=== PATIENT | female | born 1955 | race Caucasian/White ===

== ENCOUNTER → 2017-05-25 | Outpatient (CLI) | payer BC | END | disposition home or self-care (01) | LOC: LABWHC1 09:06 | PROVIDERS: ATTEND Obstetrics & Gynecology | DX: R14.0 Abdominal distension (gaseous) (principal); R10.2 Pelvic and perineal pain; Z80.8 Family history of malignant neoplasm of other organs or systems | CPT/HCPCS: 36415; 86304 ==

== ENCOUNTER → 2018-04-01 | Outpatient (CLI) | payer BC ==
[2018-04-01 11:54] LABS: Basophils % (A) 1 %; Eosinophils # (A) 0.1 k/uL (0-0.7); Eosinophils % (A) 1 %; HCT 39.9 % (34.0-46.0); Lymphocytes # (A) 1.4 k/uL (1.0-4.8); Lymphocytes % (A) 26 %; MCH 30.7 pg (25.0-35.0); MCHC 32.6 g/dL (31.0-37.0); MCV 94.2 fL (80.0-100.0); Monocytes # (A) 0.3 k/uL (0-1.0); Monocytes % (A) 6 %; Neutrophils # (A) 3.5 k/uL (1.3-7.7); Neutrophils % (A) 64 %; Platelet Count 335 k/uL (150-450); RBC 4.23 m/uL (3.80-5.40); RDW 13.4 % (11.5-15.5); WBC 5.5 k/uL (3.8-10.6)
[2018-04-01 12:06] LABS: ALT 34 U/L (9-52); AST 35 U/L (14-36); Blood Urea Nitrogen 15 mg/dL (7-17); C Reactive Protein <5.0 mg/L (<10.0); Uric Acid 4.9 mg/dL (3.7-7.4)
[2018-04-01 13:01] LABS: Erythrocyte Sedimentation Rate 8 mm/hr (0-20)
[2018-04-01 17:16] LABS: Cyclic Citrullinated Pep IgG NEGATIVE (NEGATIVE)
[2018-04-01 17:37] LABS: Rheumatoid Factor 5 IU/mL (0-15)
== END | disposition home or self-care (01) ==
LOC: LABWHC1 10:59
PROVIDERS: ATTEND Internal Medicine Rheumatology
DX: M25.50 Pain in unspecified joint (principal); M06.4 Inflammatory polyarthropathy; M10.9 Gout, unspecified
CPT/HCPCS: 36415; 82565; 82728; 84443; 84450; 84460; 84520; 84550; 85025; 85652; 86140; 86200; 86431

== ENCOUNTER 2018-05-24 07:23 | Emergency (ER) | payer BC ==
[2018-05-24 07:33] VITALS: RESP 18
--- NOTE | 2018-05-24 08:21 | ED ---
Skin/Abscess/FB HPI - General Chief complaint: Skin/Abscess/Foreign Body Stated complaint: Infection on Thumb Time Seen by Provider: 05/24/18 08:03 Source: patient, RN notes reviewed Mode of arrival: ambulatory Limitations: no limitations - History of Present Illness Initial comments: This is a 62-year-old female presents emergency Department chief complaint of left hand infection. Patient states she had a blister approximately one week ago and recently opened up a couple days ago and developed redness and pain. Patient saw PCP yesterday was given an injection of antibiotics and discharged on Levaquin. She states she's taken one dose and states that the swelling and pain worsened overnight. Patient states that her PCP 100, hospital yesterday to receive IV antibiotics. She denies any fever, chills, pain and radiates to her forearm or any noticed streaking redness. Patient has no history of MRSA VRE. - Related Data Home Medications Medication Instructions Recorded Confirmed Atorvastatin Calcium [Lipitor] 10 mg PO HS 03/29/14 05/24/18 Levothyroxine Sodium [Synthroid] 100 mcg PO DAILY 03/29/14 05/24/18 Ibuprofen [Motrin] 800 mg PO Q8HR PRN 10/27/15 05/24/18 Levofloxacin [Levaquin] 750 mg PO DAILY 05/24/18 05/24/18 Allergies Allergy/AdvReac Type Severity Reaction Status Date / Time erythromycin base Allergy Unknown Rash/Hives Verified 05/24/18 07:39 [Erythromycin Base] oxycodone HCl [From Percocet] Allergy Unknown Rash/Hives Verified 05/24/18 07:39 amoxicillin Allergy Rash/Hives Verified 05/24/18 07:39 codeine Allergy Nausea Verified 05/24/18 07:39 Review of Systems ROS Statement: Those systems with pertinent positive or pertinent negative responses have been documented in the HPI. ROS Other: All systems not noted in ROS Statement are negative. Past Medical History Past Medical History: Hyperlipidemia, Thyroid Disorder History of Any Multi-Drug Resistant Organisms: None Reported Past Surgical History: Orthopedic Surgery, Tubal Ligation Additional Past Surgical History / Comment(s): left foot surgery, d&c Past Psychological History: No Psychological Hx Reported Smoking Status: Former smoker Past Alcohol Use History: Daily Past Drug Use History: None Reported General Exam Limitations: no limitations General appearance: alert, in no apparent distress Head exam: Present: atraumatic, normocephalic, normal inspection Respiratory exam: Present: normal lung sounds bilaterally. Absent: respiratory distress, wheezes, rales, rhonchi, stridor Cardiovascular Exam: Present: regular rate, normal rhythm, normal heart sounds. Absent: systolic murmur, diastolic murmur, rubs, gallop, clicks Extremities exam: Present: other (Left hand between the first and second digit there is a 1 cm sore that is mildly fluctuant and surrounding erythema. There is noted swelling on the dorsum of the hand that extends towards the fifth digit ) Skin exam: Present: warm, dry Course Vital Signs 05/24/18 07:30 Temperature 98.2 F Pulse Rate 80 Respiratory 18 Rate Blood Pressure 158/82 O2 Sat by Pulse 99 Oximetry Procedures - Incision & Drainage Consent Obtained: verbal consent Indication: Abscess Site: hand (Left) Size (cm): 1 I&D Cleaning Method: Chloroprep Needle Aspiration Performed?: Yes Irrigation Performed?: No I&D Drainage Obtained: Pus, Blood Culture Obtained?: No Patient Tolerated Procedure: well, no complications Medical Decision Making - Medical Decision Making 62-year-old female presented for infected left hand. Patient has small abscess from a blister. Patient did receive an injection and Imitrex Estrace started on Levaquin. Patient's white count is 3 at this time. She did receive Ancef in the emergency department and she'll continue her oral antiemetics at home. Return parameters were discussed. - Lab Data Result diagrams: 05/24/18 08:21 05/24/18 08:21 Lab Results 05/24/18 05/24/18 Range/Units 08:21 08:21 WBC 3.0 L (3.8-10.6) k/uL RBC 4.31 (3.80-5.40) m/uL Hgb 13.4 (11.4-16.0) gm/dL Hct 40.8 (34.0-46.0) % MCV 94.7 (80.0-100.0) fL MCH 31.0 (25.0-35.0) pg MCHC 32.7 (31.0-37.0) g/dL RDW 14.0 (11.5-15.5) % Plt Count 250 (150-450) k/uL Neutrophils % (Manual) 2 % Lymphocytes % (Manual) 68 % Monocytes % (Manual) 27 % Eosinophils % (Manual) 3 % Neutrophils # (Manual) 0.06 L (1.3-7.7) k/uL Lymphocytes # (Manual) 2.04 (1.0-4.8) k/uL Monocytes # (Manual) 0.81 (0-1.0) k/uL Eosinophils # (Manual) 0.09 (0-0.7) k/uL Nucleated RBCs 0 (0-0) /100 WBC Manual Slide Review Performed Poikilocytosis (manual Present Sodium 141 (137-145) mmol/L Potassium 4.0 (3.5-5.1) mmol/L Chloride 104 (98-107) mmol/L Carbon Dioxide 26 (22-30) mmol/L Anion Gap 11 mmol/L BUN 12 (7-17) mg/dL Creatinine 0.78 (0.52-1.04) mg/dL Est GFR (CKD-EPI)AfAm >90 (>60 ml/min/1.73 sqM) Est GFR (CKD-EPI)NonAf 82 (>60 ml/min/1.73 sqM) Glucose 84 (74-99) mg/dL Calcium 9.4 (8.4-10.2) mg/dL Disposition Clinical Impression: Cellulitis of left hand, Infected wound Disposition: HOME SELF-CARE Condition: Stable Instructions: Cellulitis (ED) Additional Instructions: Continue antibiotics as directed. Please return to the Emergency Department if symptoms worsen or any other concerns. Is patient prescribed a controlled substance at d/c from ED?: No Referrals: Yaya Bueno MD [Primary Care Provider] - 1-2 days Time of Disposition: 08:58
[2018-05-24] MEDS ORDERED: ceFAZolin IN SWFI 2 GM/20 ML SYRINGE IVP STA (08:22)
[2018-05-24 08:31] LABS: HCT 40.8 % (34.0-46.0); HGB 13.4 gm/dL (11.4-16.0); MCHC 32.7 g/dL (31.0-37.0); MCV 94.7 fL (80.0-100.0); Mean Platelet Volume 7.5; Platelet Count 250 k/uL (150-450); RBC 4.31 m/uL (3.80-5.40)
[2018-05-24 08:41] LABS: Anion Gap 11 mmol/L; Blood Urea Nitrogen 12 mg/dL (7-17); Calcium 9.4 mg/dL (8.4-10.2); Carbon Dioxide 26 mmol/L (22-30); Chloride 104 mmol/L (98-107); Glucose 84 mg/dL (74-99); Sodium 141 mmol/L (137-145)
[2018-05-24 08:50] LABS: Eosinophils # (M) 0.09 k/uL (0-0.7); Lymphocytes # (M) 2.04 k/uL (1.0-4.8); Monocytes # (M) 0.81 k/uL (0-1.0); Neutrophils # (M) 0.06 k/uL (1.3-7.7); Neutrophils % (M) 2 %; Nucleated Red Blood Cells 0 /100 WBC (0-0); Total Cells Counted 100
[2018-05-24 08:52] LABS: Poikilocytosis (M) Present
--- NOTE | 2018-05-24 08:52 | XR ---
Left hand HISTORY: Infected blister on left thumb 3 views of the left hand Arthropathy changes are present. Small ossific densities at the interphalangeal joint of the first di git are well-corticated and felt likely to be chronic. Soft tissue swelling suspected. Alignment and bone mineralization are maintained. No periostitis to suggest osteomyelitis. IMPRESSION: Correlate to exclude acute trauma at first digit. Findings felt likely to be chronic as d escribed. Osteoarthritic changes.
[2018-05-24] MEDS ORDERED: BACITRACIN 500 UNIT/GM OINT 28.4 GM TUBE TOPICAL ONE (08:54)
[2018-05-24] MEDS ORDERED: BACITRACIN OINT 1 EACH PACKET TOPICAL ONE (09:15)
[2018-05-24 09:37] VITALS: BP 149/83; PULSE 88; TEMP 98.3
== END 2018-05-24 09:37 | disposition home or self-care (01) ==
LOC: EC 07:23
DX: L03.114 Cellulitis of left upper limb (principal); E78.5 Hyperlipidemia, unspecified; E07.9 Disorder of thyroid, unspecified; Z87.891 Personal history of nicotine dependence; Z79.899 Other long term (current) drug therapy; Z88.1 Allergy status to other antibiotic agents; Z88.5 Allergy status to narcotic agent; Z88.0 Allergy status to penicillin
CPT/HCPCS: 36415; 80048; 85025; 87040; 73130; 99283; 10060; 96374; J0690

== ENCOUNTER → 2018-08-28 | Outpatient (CLI) | payer BC ==
--- NOTE | 2018-08-29 09:02 | MM ---
Reason for exam: screening (asymptomatic). Last mammogram was performed 1 year and 10 months ago. History: Patient is postmenopausal. Family history of breast cancer in maternal aunt at age 67 and breast cancer in paternal grandmother at age 85. Physical Findings: A clinical breast exam by your physician is recommended on an annual basis and results should be correlated with mammographic findings. MG 3D Screening Mammo W/Cad Bilateral CC and MLO view(s) were taken. Prior study comparison: November 02, 2016, bilateral MG screening mammo w CAD. October 20, 2015, bilateral MG screening mammo w CAD. The breast tissue is heterogeneously dense. This may lower the sensitivity of mammography. No suspicious abnormality. No significant changes when compared with prior studies. ASSESSMENT: Negative, BI-RAD 1 RECOMMENDATION: Routine screening mammogram of both breasts in 1 year.
== END ==
LOC: RADMAMWWP 08:08
PROVIDERS: ATTEND Obstetrics & Gynecology
DX: Z12.31 Encounter for screening mammogram for malignant neoplasm of breast (principal)
CPT/HCPCS: 77063; 77067

== ENCOUNTER → 2018-10-08 | Outpatient (CLI) | payer BC ==
[2018-10-08 07:45] LABS: Basophils % (A) 1 %; Eosinophils # (A) 0.2 k/uL (0-0.7); Eosinophils % (A) 4 %; HCT 39.6 % (34.0-46.0); HGB 12.8 gm/dL (11.4-16.0); Lymphocytes # (A) 1.6 k/uL (1.0-4.8); Lymphocytes % (A) 39 %; MCH 31.2 pg (25.0-35.0); MCHC 32.3 g/dL (31.0-37.0); MCV 96.5 fL (80.0-100.0); Mean Platelet Volume 7.1; Monocytes # (A) 0.2 k/uL (0-1.0); Monocytes % (A) 4 %; Neutrophils % (A) 49 %; Platelet Count 346 k/uL (150-450); RDW 13.2 % (11.5-15.5); WBC 4.1 k/uL (3.8-10.6)
[2018-10-08 16:39] LABS: Albumin 4.4 g/dL (3.80-4.90); Albumin/Globulin Ratio 2.2 (1.20-2.10); Anion Gap 10.3 mmol/L (4.00-12.00); Calcium 9.2 mg/dL (8.7-10.3); Carbon Dioxide 23.7 mmol/L (21.6-31.8); Hemoglobin A1C 5.6 % (4.0-6.0); LDL Cholesterol,Calculated 96.4 mg/dL (0.0-131.0); Potassium 4.6 mmol/L (3.5-5.5); Total Bilirubin 0.5 mg/dL (0.3-1.2); Total Protein 6.4 g/dL (6.2-8.2); VLDL Calculation 17.6 mg/dL (5.00-40.00)
== END ==
LOC: LABWHC1 07:12
PROVIDERS: ATTEND Internal Medicine Cardiovascular Disease
DX: E03.9 Hypothyroidism, unspecified (principal); E66.3 Overweight; E78.2 Mixed hyperlipidemia; F41.1 Generalized anxiety disorder; R68.84 Jaw pain; R07.9 Chest pain, unspecified; R94.31 Abnormal electrocardiogram [ECG] [EKG]; Z68.25 Body mass index [BMI] 25.0-25.9, adult
CPT/HCPCS: 36415; 80053; 80061; 82306; 82550; 83036; 84443; 85025

== ENCOUNTER 2019-07-30 10:06 | Day surgery (SDC) | payer BC ==
[2019-07-28 15:53] VITALS: BMI 25.8
[~2019-07-30 10:06] MED LIST: LACTATED RINGERS 1,000 ML IV SCH; LIDOCAINE 1% 20 ML VIAL (10MG/ML) FOR IV START INTRADERMA PRN
[2019-07-30 10:30] VITALS: TEMP 98.1
[2019-07-30] MEDS ORDERED: PROPOFOL 10 MG/ML 20 ML VIAL IV ONE (10:55)
[2019-07-30] MEDS ORDERED: LIDOCAINE 1% INJ 10MG/ML (20 ML MDV) ONE (10:55)
[2019-07-30] MEDS ORDERED: GLYCOPYRROLATE 0.2 MG/ML 2 ML VIAL ONE (10:55)
--- NOTE | 2019-07-30 11:03 | P.PCN ---
Date of Procedure: 07/30/19 Procedure(s) Performed: BRIEF HISTORY: Patient is a 63-year-old, pleasant, at female, scheduled for an upper endoscopy as a part of evaluation of chronic intermittent diarrhea. Recently was noted to have positive celiac serology and hence she is scheduled for an upper endoscopy to evaluate this. PROCEDURE PERFORMED: Esophagogastroduodenoscopy with biopsy. PREOPERATIVE DIAGNOSIS: Intermittent diarrhea/positive celiac serology. IV sedation per anesthesia. PROCEDURE: After informed consent was obtained, the patient was brought into the endoscopy unit. IV sedation was administered by Anesthesia under continuous monitoring. Initially the Olympus GIF-140 video endoscope was inserted into the mouth. Esophagus intubated without any difficulty. It was gradually advanced into the stomach and duodenum and carefully examined. The bulb and the second part of the duodenum appeared normal. Multiple biopsies were done in the duodenum to rule out celiac disease. The scope at this time was withdrawn to the stomach, adequately insufflated with air, and upon careful examination, mucosa of the antrum had patchy areas of erythema in the prepyloric area which was biopsied. The, body, cardia and the fundus appeared normal. The scope was then withdrawn into the esophagus. The GE junction was located at 42 cm from the incisors. The esophagus appeared normal. There were no erosions or ulcerations seen and the patient tolerated the procedure well. IMPRESSION: 1. Mild antral gastritis. 2. And normal-appearing duodenum status post multiple biopsies to rule out celiac disease. RECOMMENDATIONS: The findings of this examination were discussed with the patient his as well as a family. She was advised to follow with the biopsy results and she'll be seen in office in 2 weeks..
[2019-07-30 11:34] VITALS: BP 117/78; PULSE 88; RESP 16
== END 2019-07-30 11:35 | disposition home or self-care (01) ==
LOC: ORWHC2ENDO 10:06
PROVIDERS: ATTEND Internal Medicine Gastroenterology
DX: K29.50 Unspecified chronic gastritis without bleeding (principal); K21.9 Gastro-esophageal reflux disease without esophagitis; R76.8 Other specified abnormal immunological findings in serum; K52.9 Noninfective gastroenteritis and colitis, unspecified; E78.5 Hyperlipidemia, unspecified; E07.9 Disorder of thyroid, unspecified; Z88.0 Allergy status to penicillin; Z88.1 Allergy status to other antibiotic agents; Z88.5 Allergy status to narcotic agent; Z79.1 Long term (current) use of non-steroidal anti-inflammatories (NSAID); Z79.890 Hormone replacement therapy; Z79.899 Other long term (current) drug therapy
CPT/HCPCS: 88305; 43239; J2001; J2704

== ENCOUNTER → 2019-08-21 | Outpatient (CLI) | payer BC ==
[2019-08-21 08:56] LABS: Basophils # (A) 0.1 k/uL (0-0.2); Basophils % (A) 1 %; Eosinophils # (A) 0.1 k/uL (0-0.7); Eosinophils % (A) 2 %; HCT 41.1 % (34.0-46.0); HGB 13.1 gm/dL (11.4-16.0); Lymphocytes # (A) 1.4 k/uL (1.0-4.8); Lymphocytes % (A) 22 %; MCH 31.3 pg (25.0-35.0); MCV 97.9 fL (80.0-100.0); Mean Platelet Volume 7.7; Monocytes # (A) 0.3 k/uL (0-1.0); Monocytes % (A) 5 %; Neutrophils # (A) 4.2 k/uL (1.3-7.7); Neutrophils % (A) 66 %; Platelet Count 267 k/uL (150-450); RBC 4.19 m/uL (3.80-5.40); RDW 13.1 % (11.5-15.5); WBC 6.4 k/uL (3.8-10.6)
[2019-08-21 10:21] LABS: Erythrocyte Sedimentation Rate 13 mm/hr (0-20)
[2019-08-21 19:21] LABS: Rheumatoid Factor 8 IU/mL (0-15)
[2019-08-21 19:30] LABS: Vitamin D 25 Hydroxy 24.4 ng/mL (30.0-100.0)
[2019-08-21 20:39] LABS: African American GFR (CKD) 78.9 (60.0-200.0); C Reactive Protein 0.7 mg/dL (0.0-0.8); Uric Acid 5.3 mg/dL (2.9-7.7)
[2019-08-21 20:55] LABS: Cyclic Citrull Pep IgG Unit <0.5 U/mL; Cyclic Citrullinated Pep IgG NEGATIVE (NEGATIVE)
== END | disposition home or self-care (01) ==
LOC: LABWHC1 07:49
PROVIDERS: ATTEND Internal Medicine Rheumatology
DX: M81.0 Age-related osteoporosis without current pathological fracture (principal); M25.50 Pain in unspecified joint; M06.4 Inflammatory polyarthropathy; M05.79 Rheumatoid arthritis with rheumatoid factor of multiple sites without organ or systems involvement
CPT/HCPCS: 36415; 82306; 82310; 82565; 83970; 84075; 84450; 84460; 84520; 84550; 85025; 85652; 86140; 86200; 86431

== ENCOUNTER → 2019-08-21 | Outpatient (CLI) | payer BC ==
--- NOTE | 2019-08-21 09:49 | US ---
EXAMINATION TYPE: US abdomen limited DATE OF EXAM: 08/21/2019 COMPARISON: NONE CLINICAL HISTORY: R10.11 Right upper quadrant pain. RUQ pain EXAM MEASUREMENTS: Liver Length: 18.4 cm Gallbladder Wall: .3 cm CBD: .5 cm Right Kidney: 10.5 x 4.6 x 3.7 cm Pancreas: Tail obscured by overlying bowel gas Liver: Slightly increased echotexture homogeneously throughout, which limits evaluation for hepatic masses. Gallbladder: No stones seen. Small amount of pericholecystic fluid seen. Evidence for sonographic Angela's sign: No CBD: wnl Right Kidney: wnl IMPRESSION: 1. No sonographic evidence of cholelithiasis nor acute cholecystitis. Given patient's localized right upper quadrant pain HIDA scan could assess for biliary dyskinesia or chronic cholecystitis. 2. Very mildly increased echotexture of the hepatic parenchyma. Correlate with liver function tests t o evaluate for mild degree hepatic steatosis.
== END | disposition home or self-care (01) ==
LOC: RADUSWWP 07:29
PROVIDERS: ATTEND Internal Medicine Gastroenterology
DX: R10.11 Right upper quadrant pain (principal)
CPT/HCPCS: 76705

== ENCOUNTER → 2019-09-09 | Outpatient (CLI) | payer BC ==
--- NOTE | 2019-09-09 17:54 | NM ---
EXAMINATION TYPE: NM hepatobiliary w EF DATE OF EXAM: 09/09/2019 COMPARISON: Ultrasound 08/21/2019 HISTORY: Right upper quadrant pain TECHNIQUE: After the intravenous administration of 5.4 mCi Tc 99m Mebrofenin hepatobiliary scintigrap hy is performed. Immediate images post injection. FINDINGS: There is satisfactory initial accumulation of tracer by the liver. The gallbladder is visualized wit hin 32 minutes. The small bowel activity is noted within 10 minutes. At one hour 8 ounces of oral e nsure plus is given to mimic CCK and gallbladder ejection fraction is calculated at 84 %, at the uppe r limit of the normal range. There may be limitation to accuracy of this ejection fraction calculatio n due to activity in this region. Therefore there is no scintigraphic evidence of cystic or common b ile duct obstruction to suggest acute cholecystitis or gallbladder dyskinesia. IMPRESSION: Exam is within normal limits with limitations as described..
== END | disposition home or self-care (01) ==
LOC: RADNMMAIN 12:48
PROVIDERS: ATTEND Internal Medicine Gastroenterology
DX: R10.11 Right upper quadrant pain (principal)
CPT/HCPCS: 78226; A9537

== ENCOUNTER → 2019-09-12 | Outpatient (CLI) | payer BC ==
--- NOTE | 2019-09-15 10:02 | MM ---
Reason for exam: screening (asymptomatic). Last mammogram was performed 1 year ago. History: Patient is postmenopausal. Family history of breast cancer in maternal aunt at age 67 and breast cancer in paternal grandmother at age 85. Physical Findings: A clinical breast exam by your physician is recommended on an annual basis and results should be correlated with mammographic findings. MG 3D Screening Mammo W/Cad Bilateral CC and MLO view(s) were taken. Prior study comparison: August 28, 2018, bilateral MG 3d screening mammo w/cad. November 02, 2016, bilateral MG screening mammo w CAD. There are scattered fibroglandular densities. No significant changes when compared with prior studies. ASSESSMENT: Benign, BI-RAD 2 RECOMMENDATION: Routine screening mammogram of both breasts in 1 year.
== END | disposition home or self-care (01) ==
LOC: RADMAMWWP 13:53
PROVIDERS: ATTEND Obstetrics & Gynecology
DX: Z12.31 Encounter for screening mammogram for malignant neoplasm of breast (principal)
CPT/HCPCS: 77063; 77067

== ENCOUNTER → 2019-09-25 | Outpatient (CLI) | payer BC ==
--- NOTE | 2019-09-25 12:09 | BD ---
EXAMINATION TYPE: Axial Bone Density DATE OF EXAM: 09/25/2019 COMPARISON: 09.14.2014 CLINICAL HISTORY: 63 YR OLD FEMALE....ICD-10 CODE: N95.1 POST MENOPAUSAL Height: 68.8 Weight: 180 FRAX RISK QUESTIONS: Family History (Parent hip fracture): NO FX RISK FACTORS HISTORY OF: Family History of Osteoporosis: YES, HER MOTHER AND SISTER Active: YES Postmenopausal woman: YES AT AGE 48, NATURAL Hyperparathyroidism: NO Adrenal Insufficiency: NO MEDICATIONS: Thyroid Medications: YES, SYNTHROID FOR ABOUT 15 YRS Additional Medications: REFLUX MEDS, STATIN FOR CHOLESTEROL, VIT D3, Additional History: CHOLESTEROL, REFLUX EXAM MEASUREMENTS: Bone mineral densitometry was performed using the [employer] System. Bone mineral density as measured about the Lumbar spine is: ----- L1-L4(G/cm2): 1.387 T Score Values are as follows: ----- L1: 1.4 ----- L2: 0.5 ----- L3: 2.0 ----- L4: 2.7 ----- L1-L4: 1.7 Bone mineral density has: Decreased -0.1% since study of: 09.14.2014 Bone mineral density about the R hip (g/cm2): 0.918 Bone mineral density about the L hip (g/cm2): 0.982 T Score values are as follows: -----R Neck: -0.6 -----L Neck: -0.2 -----R Total: -0.7 -----L Total: -0.2 Bone mineral density has: Decreased -5.8% since study of: 09.14.2014 FRAX%s: THERE IS A 7.2% CHANCE FOR A MAJOR OSTEOPOROTIC FX AND A 03.% FOR HIP....PROBABILITY FOR FX IN 10 YRS TIME IMPRESSION: Normal (Values between +1 and -1 indicate normal bone mass). Consider repeating this study in 5 year s or sooner if there is some new clinical indication. NOTE: T-SCORE=SD OF THE YOUNG ADULT MEAN.
== END | disposition home or self-care (01) ==
LOC: RADBDWWP 07:14
PROVIDERS: ATTEND Obstetrics & Gynecology
DX: N95.1 Menopausal and female climacteric states (principal)
CPT/HCPCS: 77080

== ENCOUNTER → 2022-10-18 | Outpatient (CLI) | payer BC ==
--- NOTE | 2022-10-18 08:26 | CT ---
EXAMINATION TYPE: CT brain wo con DATE OF EXAM: 10/18/2022 COMPARISON: None HISTORY: 66-year-old female R2 6.89 Dizziness TECHNIQUE: Examination was done in axial plane without intravenous contrast. Coronal and sagittal r econstructions performed. CT DLP: 1121 mGycm Automated exposure control for dose reduction was used. FINDINGS: The exam is limited by motion especially towards the base of the skull. Allowing for this limitation, there is no evidence of acute intracranial hemorrhage, acute ischemic changes, mass, mass-effect, or extra-axial fluid collection. There is no effacement of cerebral sulc i or basal subarachnoid cisterns. There is no hydrocephalus. There is no midline shift. Carvajal-white matter distinction is preserved. Partially empty sella noted. Limited assessment of the orbits and globes due to the extensive motion. There seems to be some leftw abby nasal septal deviation. Suspect some retained mucoid debris within the posterior nasopharynx. Mas toid air cells are well pneumatized. IMPRESSION: Motion limited exam especially towards the base of the skull. Partially empty sella, likely an incide ntal finding. No acute intracranial abnormality seen.
== END | disposition home or self-care (01) ==
LOC: RADCTMAIN 07:42
PROVIDERS: ATTEND Family Medicine
DX: R26.89 Other abnormalities of gait and mobility (principal)
CPT/HCPCS: 70450

== ENCOUNTER → 2024-03-06 | Outpatient (CLI) | payer MEDICARE ==
--- NOTE | 2024-03-06 13:33 | XR ---
EXAMINATION TYPE: XR Hip Complete LT DATE OF EXAM: 03/06/2024 1:13 PM CLINICAL INDICATION:Female, 68 years old with history of M70.62 bursitis L hip; PHH COMPARISON: None. TECHNIQUE: XR Hip Complete LT; hip was examined in the frontal and lateral projections and a AP pelvi s. FINDINGS: Sclerotic lesion near the proximal left femur diaphysis measuring 21 x 12 mm. Is rather thi n zone of transition. No cortical breakthrough or soft tissue identified. Mild degeneration changes left hip with osteophyte formation and joint space narrowing. IMPRESSION: 1. No acute process. 2. Mild left hip osteoarthrosis. 3. Left proximal hip diaphysis sclerotic lesion which is indeterminate. There are nonaggressive feat ures. Consider short-term follow-up in 3-6 months.
== END | disposition home or self-care (01) ==
LOC: RADXRMAIN 12:52
PROVIDERS: ATTEND Family Medicine
DX: M16.12 Unilateral primary osteoarthritis, left hip (principal); M70.62 Trochanteric bursitis, left hip
CPT/HCPCS: 73502

== ENCOUNTER → 2025-03-02 | Outpatient (CLI) | payer MEDICARE ==
--- NOTE | 2025-03-02 12:42 | XR ---
EXAMINATION TYPE: XR Hip Bilateral Complete DATE OF EXAM: 03/02/2025 12:03 PM COMPARISON: Left hip 03/06/2024 CLINICAL INDICATION: Female, 69 years old with history of M25.25 M17.0; PHH, pain TECHNIQUE: 2 views each side FINDINGS: There is mild axial joint space narrowing on both sides. A few scattered pelvic phleboliths . No acute fracture, subluxation, dislocation. Osteopenia. 2.1 cm mixed sclerotic lucent lesion withi n the subtrochanteric trochanter proximal left femur with narrow zone of transition remains unchanged favoring a benign etiology. IMPRESSION: 1. Mild bilateral hip OA. Osteopenia without acute osseous abnormality seen. 2. Stable osseous lesion measuring 2.1 cm in the subtrochanteric proximal left femur. Stability from 03/06/2024 favors a benign etiology such as a fibro-osseous lesion. [facility], , 03/02/2025 12:40 PM
--- NOTE | 2025-03-02 12:45 | XR ---
EXAMINATION TYPE: XR knee complete bilateral DATE OF EXAM: 03/02/2025 12:03 PM COMPARISON: None CLINICAL INDICATION: Female, 69 years old with history of M25.25 M17.0; PHH, pain TECHNIQUE: 3 views each side FINDINGS: There is degenerative change in the medial and patellofemoral compartments characterized by marginal spurring. Lesser degree of marginal spurring in the right lateral compartment. The right kn ee shows a fragmented spur from the upper pole of the patella. No significant joint effusion seen on either side. IMPRESSION: 1. Right knee with tricompartmental osteoarthrosis greatest in the medial and patellofemoral compartm ents. There is a chronically fragmented spur from the upper pole of the patella. 2. Left knee with mild to moderate bicompartmental osteoarthrosis involving the medial and patellofem oral compartments. No acute osseous abnormality seen. [facility], , 03/02/2025 12:42 PM
== END | disposition home or self-care (01) ==
LOC: RADXRMAIN 11:35
PROVIDERS: ATTEND Family Medicine
DX: M17.0 Bilateral primary osteoarthritis of knee (principal); M16.0 Bilateral primary osteoarthritis of hip; M85.89 Other specified disorders of bone density and structure, multiple sites
CPT/HCPCS: 73521